=== PATIENT | male | born 1990 | race African-American/Black ===

== ENCOUNTER 2018-03-02 01:43 | Emergency (ER) | payer SELFPAY ==
[2018-03-02 02:10] LABS: Bilirubin Negative (Negative); Blood, Urine Negative (Negative); Clarity CLEAR (Clear); Glucose, Urine (Dipstick) Negative (Negative); Leukocyte Small (Negative); Nitrite Negative (Negative); Protein, Urine (Dipstick) Negative (Neg-Trace); Specific Gravity, Urine 1.028 (1.002-1.036)
[2018-03-02 02:13] LABS: Bacteria/HPF None Seen HPF (None Seen); Hyaline Casts/LPF 0-3 HYALINE CAST LPF (0-3 Hyaline); Pathc Cast-AUWi Flag 0.14 (0-2.49); RBC/HPF 0-3 HPF (0-3); Squamous Epithelial 0-3 HPF (0-3); WBC/HPF 21-50 HPF (0-3)
[2018-03-02] MEDS ORDERED: Lidocaine 1% PF 5 ML VIAL ONE (02:20)
[2018-03-02] MEDS ORDERED: cefTRIAXone\\ROCEPHIN 250 MG VIAL ONE (02:20)
[2018-03-02] MEDS ORDERED: Azithromycin 250 MG TAB PO SCH (02:30)
[2018-03-02] MEDS ORDERED: Azithromycin 250 MG TAB ONE ×2 (02:43→02:44)
[2018-03-03 01:02] LABS: Chlamydia by PCR Not Detected (NotDetected); GC by PCR Not Detected (NotDetected)
== END 2018-03-02 04:24 | disposition home or self-care (01) ==
LOC: ERS 01:43
DX: J06.9 Acute upper respiratory infection, unspecified (principal); N34.2 Other urethritis; J45.909 Unspecified asthma, uncomplicated; Z79.899 Other long term (current) drug therapy
CPT/HCPCS: 81003; 81015; 87491; 87591; 96372; J0696; J2001

== ENCOUNTER 2018-05-07 23:16 | Emergency (ER) | payer SELFPAY ==
[2018-05-07] MEDS ORDERED: cefTRIAXone\\ROCEPHIN 250 MG VIAL ONE (23:55)
[2018-05-07] MEDS ORDERED: Lidocaine 1% PF 5 ML VIAL ONE (23:55)
[2018-05-07] MEDS ORDERED: Azithromycin 250 MG TAB ONE (23:55)
[2018-05-08 00:03] LABS: Bilirubin Negative (Negative); Blood, Urine Negative (Negative); Clarity CLEAR (Clear); Glucose, Urine (Dipstick) Negative (Negative); Leukocyte Moderate (Negative); Nitrite Negative (Negative); Protein, Urine (Dipstick) Negative (Neg-Trace); Specific Gravity, Urine 1.028 (1.002-1.036)
[2018-05-08 00:04] LABS: Bacteria/HPF None Seen HPF (None Seen); Pathc Cast-AUWi Flag 0.58 (0-2.49); RBC/HPF 0-3 HPF (0-3); WBC/HPF 21-50 HPF (0-3)
[2018-05-08 00:06] LABS: Hyaline Casts/LPF 0-3 HYALINE CAST LPF (0-3 Hyaline); Oval Fat Bodies/HPF None Seen HPF (None Seen); Renal Epithelial None Seen HPF (0-3); Sperm/HPF None Seen HPF (None Seen); Transitional Epithelial NONE SEEN HPF (0-3); Trichomonas/HPF None Seen HPF (None Seen); Yeast-All Forms None Seen HPF (None Seen)
[2018-05-11 01:07] LABS: Chlamydia by PCR Not Detected (NotDetected); GC by PCR DETECTED (NotDetected)
== END 2018-05-08 00:33 | disposition home or self-care (01) ==
LOC: ERS 23:16
DX: Z20.2 Contact with and (suspected) exposure to infections with a predominantly sexual mode of transmission (principal); J45.909 Unspecified asthma, uncomplicated; Z79.899 Other long term (current) drug therapy
CPT/HCPCS: 81003; 81015; 87491; 87591; 96372; J0696; J2001

== ENCOUNTER 2018-06-28 01:40 | Emergency (ER) | payer SELFPAY ==
[2018-06-28 02:23] LABS: Bilirubin Negative (Negative); Blood, Urine Negative (Negative); Clarity CLEAR (Clear); Glucose, Urine (Dipstick) Negative (Negative); Leukocyte Trace (Negative); Nitrite Negative (Negative); Protein, Urine (Dipstick) Negative (Neg-Trace); Specific Gravity, Urine 1.028 (1.002-1.036); Urobilinogen 0.2 mg/dL (0.2-1.0); pH, Urine 5.5 (5.0-9.0)
[2018-06-28 02:25] LABS: Bacteria/HPF None Seen HPF (None Seen); Hyaline Casts/LPF 0-3 HYALINE CAST LPF (0-3 Hyaline); RBC/HPF None Seen HPF (0-3); Squamous Epithelial None Seen HPF (0-3)
== END 2018-06-28 03:58 | disposition home or self-care (01) ==
LOC: ERS 01:40
DX: R30.0 Dysuria (principal); J45.909 Unspecified asthma, uncomplicated
CPT/HCPCS: 81003; 81015; 87086; 99283